=== PATIENT | female | born 1980 | race Caucasian/White ===

== ENCOUNTER → 2021-01-12 | Outpatient (CLI) | payer OTHER | LOC: M.MRI 12:56 | PROVIDERS: ATTEND Family Medicine | DX: S43.402A Unspecified sprain of left shoulder joint, initial encounter (principal); M25.512 Pain in left shoulder; G89.29 Other chronic pain; X58.XXXA Exposure to other specified factors, initial encounter; Y93.89 Activity, other specified; Y92.89 Other specified places as the place of occurrence of the external cause; Y99.8 Other external cause status ==

== ENCOUNTER → 2021-02-01 | Outpatient (CLI) | payer OTHER ==
--- NOTE | ~2021-02-01 | EEG ---
[address] [address] EEG STUDY REPORT Name: PRETTY DAVID Room: [facility]#: [id number] Admission: 02/01/21 Attend Phys: Terrance Hernandez MD Discharge: Date of : 80 Report #: [id number] THIS REPORT FOR: cc: Yas Hall Linda J. DO Khosla,Terrance Cates MD ~ DATE OF SERVICE: 02/01/2021 This patient is being evaluated for syncope. EEG was done by placing the electrode by standard 10-20 system of electrode placement. Both referential and sequential montages were used for recording. Background activity in this patient's EEG was about 11 Hz and 40 microvolt. Large portion of this EEG was obtained when the patient was asleep. Photic stimulation was unremarkable. Throughout the record, no active epileptiform activity was noticed. Some temporal lobe slowing was noticed when the patient was asleep. That is probably sleep-related activity rather than any epileptiform activity. IMPRESSION: This patient's EEG does not demonstrate any clear cut spike and slow wave activity. It is somewhat borderline because of some slowing noticed on the temporal area. Therefore, clinical correlation is recommended. By: [id number] Hernandez MD /nt
== END ==
LOC: M.CRD 01-30 15:50 → M.LAB 12:35 → M.MRI 13:30
PROVIDERS: ATTEND Psychiatry & Neurology Neuromuscular Medicine
DX: R90.82 White matter disease, unspecified (principal); R55 Syncope and collapse; Z83.3 Family history of diabetes mellitus

== ENCOUNTER → 2021-05-12 | Outpatient (CLI) | payer OTHER ==
[2021-05-12 10:48] LABS: ALBUMIN 4.3 g/dL (3.4-5.0); CALCIUM 9.1 mg/dL (8.5-10.1); POTASSIUM 4.5 mmol/L (3.5-5.1); TOTAL BILIRUBIN 0.8 mg/dL (<0.1-1.0); TOTAL PROTEIN 7.7 g/dL (6.4-8.2)
== END ==
LOC: M.LAB 05-10 15:15 → M.CT 11:15
PROVIDERS: ATTEND Psychiatry & Neurology Neuromuscular Medicine
DX: R42 Dizziness and giddiness (principal); R93.89 Abnormal findings on diagnostic imaging of other specified body structures; R55 Syncope and collapse